=== PATIENT | male | born 1980 | race Caucasian/White ===

== ENCOUNTER 2023-01-22 18:56 | Emergency (ER) | payer OTHER, SELFPAY ==
[2023-01-22 19:05] VITALS: BP 143/90; PULSE 96; RESP 18; TEMP 36.5; O2SAT 96
--- NOTE | 2023-01-22 19:18 | ED.DENTAL ---
HPI - Dental/Oral General Chief complaint: Dental/Oral Stated complaint: Pain in gums Time Seen by Provider: 01/22/23 19:11 Source: patient and RN notes reviewed Mode of arrival: ambulatory Limitations: no limitations History of Present Illness HPI Narrative: Patient presents today complaining of right lower dental pain and gum swelling x2 days. Currently rates his pain 8/10 and has been using Orajel without relief. States he feels that his tooth is rubbing on the inside of his cheek. He was just seen at his dentist last week where they told him that part of his gum line with swollen, but he was not having pain at that time. Related Data Home Medications Medication Instructions Recorded Confirmed buspirone 15 mg tablet 15 mg PO DAILY 01/22/23 01/22/23 lisinopril 20 mg tablet 20 mg PO DAILY 01/22/23 01/22/23 propranolol 40 mg tablet 40 mg PO BID 01/22/23 01/22/23 sertraline 100 mg tablet 100 mg PO DAILY 01/22/23 01/22/23 Allergies Allergy/AdvReac Type Severity Reaction Status Date / Time No Known Allergies Allergy Unverified 01/22/23 19:01 Review of Systems Review of Systems: CONSTITUTIONAL: Denies body aches, fever, chills, or sweats. EYES: Denies visual changes, redness, or discharge. ENT: Denies rhinorrhea, congestion, sore throat, or otalgia.+ tooth pain and gum swelling CARDIOVASCULAR: Denies chest pain, palpitations, or edema. RESPIRATORY: Denies cough or dyspnea. GASTROINTESTINAL: Denies abdominal pain, nausea, vomiting, or diarrhea. GENITOURINARY: Denies dysuria or hematuria. SKIN: Denies rash, itching, or wounds. MUSCULOSKELETAL: Denies back pain, joint pain, or myalgia. NEUROLOGIC: Denies headache, numbness, tingling, or weakness. PSYCH: Denies depression or anxiety. PMFSH Comments At time of signature, I have reviewed and agree with nursing past medical, surgical, social and family history unless otherwise noted. Please see nursing chart for further information. There is no relevant family history pertinent to the presenting complaint Exam Narrative: GENERAL: Well-appearing, well-nourished, and in no acute distress. HEAD: Normocephalic, atraumatic. EYES: EOMI. No redness or drainage. Conjunctivae normal. ENT: Mucous membranes pink and moist. Tenderness to tooth number 30 with slight adjacent gum swelling. No obvious periapical abscess. No obvious tooth decay or protrusion. No facial swelling. NECK: Normal AROM. CHEST: No respiratory distress. EXTREMITIES: Normal range of motion. No edema. SKIN: Warm, dry, no rash. Capillary refill normal. Normal skin turgor. NEURO: No focal deficits. Alert and oriented x3. Gait steady. PSYCH: Normal affect. No signs of depression or anxiety. Course Course Level of Care: Express Care Visit Vital Signs Vital signs: Vital Signs Temperature 97.7 F 01/22/23 19:05 Pulse Rate 96 01/22/23 19:05 Respiratory Rate 18 01/22/23 19:05 Blood Pressure 143/90 H 01/22/23 19:05 Pulse Oximetry 96 01/22/23 19:05 Oxygen Delivery Room Air 01/22/23 19:05 Temperature 97.7 F 01/22/23 19:05 Pulse Rate 96 01/22/23 19:05 Respiratory Rate 18 01/22/23 19:05 Blood Pressure 143/90 H 01/22/23 19:05 Pulse Oximetry 96 01/22/23 19:05 Oxygen Delivery Room Air 01/22/23 19:05 Reviewed. Pt has been instructed to follow up with his PCP regarding his elevated blood pressure today. MDM - Dental/Oral MDM Narrative Medical decision making narrative: Prescription for amoxicillin sent to pharmacy. Recommended patient follow-up with his dentist for further evaluation. Anticipatory guidance given. Differential Diagnosis Differential diagnosis: Likely gingival abscess, dental caries, toothache, dental abscess and fracture of tooth Critical Care Time Critical Care Time Critical Care Time: No Discharge Plan Discharge Clinical Impression: Gingivitis, Toothache Patient Disposition: Home, Self-Care Condition: Stable Instruc
== END 2023-01-22 19:24 | disposition home or self-care (01) ==
PROVIDERS: Emergency Provider Nurse Practitioner; PCP Family Medicine
DX: K05.10 Chronic gingivitis, plaque induced (principal); K08.89 Other specified disorders of teeth and supporting structures; E11.9 Type 2 diabetes mellitus without complications
CPT/HCPCS: 99203; G0463